=== PATIENT | female | born 1935 | race Caucasian/White ===

== ENCOUNTER 2018-12-30 08:30 | Inpatient (IN) | payer OTHER ==
[~2018-12-30] VITALS: Ht 154.9 cm; Wt 72.6 kg
[2018-12-30] MEDS ORDERED: ASA81 MG PO (12:23)
[2018-12-30] MEDS ORDERED: GABAPENTIN400 MG PO (12:24)
[2018-12-30] MEDS ORDERED: IRBESARTAN150 MG PO (12:24)
[2018-12-30] MEDS ORDERED: CRESTOR10 MG PO (12:24)
[2019-01-06] MEDS ORDERED: CEFADROXIL500 MG PO (10:53)
[2019-01-06] MEDS ORDERED: ELIQUIS2.5 MG PO (10:53)
[2019-01-06] MEDS ORDERED: PERCOCET 5-3251 EACH PO (10:53)
== END 2019-01-06 12:48 | DRG 470 ==
LOC: ADM 08:30 → EDSTATUS 08:30 → SURG 01-04 06:18 → O/R 01-04 06:18 → SURH 01-04 08:30 → SURG 01-04 10:18 → SURH 01-04 12:45 → SURG 01-06 12:48
PROVIDERS: ADMIT Orthopaedic Surgery
PROC: 0MNN0ZZ Release Right Knee Bursa and Ligament, Open Approach (ICD-10-PCS; 2019-01-04)
PROC: 0SRC0J9 Replacement of Right Knee Joint with Synthetic Substitute, Cemented, Open Approach (ICD-10-PCS; principal; 2019-01-04 12:45)
DX: M17.11 Unilateral primary osteoarthritis, right knee (principal); D62 Acute posthemorrhagic anemia; M80.00XA Age-related osteoporosis with current pathological fracture, unspecified site, initial encounter for fracture; G62.89 Other specified polyneuropathies; I10 Essential (primary) hypertension; E78.49 Other hyperlipidemia